=== PATIENT | male | born 1940 | race Caucasian/White ===

== ENCOUNTER → 2020-11-22 | Outpatient (REF) | payer MEDICARE, OTHER | LOC: M LAB REF 13:36 | PROVIDERS: ATTEND Internal Medicine Nephrology | DX: E83.42 Hypomagnesemia (principal) ==

== ENCOUNTER 2024-02-24 10:36 | Day surgery (SDC) | payer MEDICARE, OTHER ==
[~2024-02-24] VITALS: Ht 167.6 cm; Wt 72.1 kg
[~2024-02-24 10:36] MED LIST: ACID1CAP5 PO; ALBU2.5V10; ATOR1TAB21 PO; CITA10TA7 PO; ELIQ5TAB PO; ERGO500029 PO; FURO20TA2 PO; LEVO25TA5 PO; MIDAZOLAM INJ 2MG/2ML VIAL As Ordered ONE; OMEG1CAP12 PO; OMEP-173 PO; PHENYLEPHRINE 10% OPHTH SOL 5ML OS PRN; TAMS1CAP17 PO; VENTAER INH; [UNRECOGNIZED DRUG - CODE] PO; fentaNYL 100 MCG/2 ML INJECTION As Ordered ONE
[2024-02-24] MEDS: LIDOCAINE 3.5 % 1ML OPHTH TOPICAL GEL OU ONE (11:05)
[2024-02-24] MEDS: OFLOXACIN 0.3 % (OCUFLOX) OPTH SOL 5ML OS ONE (11:05)
[2024-02-24] MEDS: ATROPINE SULFATE 1% OPHTH SOLN 2ML BTL OS SCH (11:05)
[2024-02-24] MEDS: PHENYLEPHRINE 2.5% OPHTH SOL 2ML OS SCH (11:06)
[2024-02-24] MEDS: TROPICAMIDE 1% OPHTH SOLN 15ML OS SCH (11:06)
[2024-02-24] MEDS ORDERED: LIDOCAINE 2% 100MG/5ML SDV (FOR ANES.) As Ordered ONE (11:57)
[2024-02-24] MEDS: LEVALBUTEROL 1.25MG 0.5ML CONCENTRATE NEB NEB ONE (12:06)
[2024-02-24] MEDS: CEFUROXIME 1MG/0.1ML INTRACAMERAL INJ As Ordered ONE (12:20)
[2024-02-24] MEDS: BSS IRRIG/VANCO(10MG)/TOBRA(5MG)/EPINEPH(1:1000-0.5CC)500ML BAG-ORONLY As Ordered ONE (12:20)
[2024-02-24] MEDS: LIDOCAINE 1% SDV 5ML VIAL As Ordered ONE (12:20)
[2024-02-24 12:35] VITALS: BP 136/73; TEMP 97.4; O2SAT 95
== END 2024-02-24 12:57 | disposition home or self-care (01) ==
LOC: M SDC 10:36
PROVIDERS: ATTEND Ophthalmology
DX: H25.9 Unspecified age-related cataract (principal); H57.03 Miosis; I48.91 Unspecified atrial fibrillation; I25.10 Atherosclerotic heart disease of native coronary artery without angina pectoris; I25.2 Old myocardial infarction; G47.30 Sleep apnea, unspecified; Z95.5 Presence of coronary angioplasty implant and graft; Z79.899 Other long term (current) drug therapy
CPT/HCPCS: 66982; J0697; J2250; J3010; V2632

== ENCOUNTER 2024-04-20 08:01 | Day surgery (SDC) | payer MEDICARE, OTHER ==
[~2024-04-20] VITALS: Ht 167.6 cm; Wt 72.8 kg
[~2024-04-20 08:01] MED LIST changes: -MIDAZOLAM INJ 2MG/2ML VIAL As Ordered ONE; +PHENYLEPHRINE 10% OPHTH SOL 5ML OD PRN; -PHENYLEPHRINE 10% OPHTH SOL 5ML OS PRN; -fentaNYL 100 MCG/2 ML INJECTION As Ordered ONE
[2024-04-20] MEDS: OFLOXACIN 0.3 % (OCUFLOX) OPTH SOL 5ML OD ONE (08:50)
[2024-04-20] MEDS: CYCLOPENTOLATE 1% OPHTH SOLN 2ML BTL OD SCH (08:56)
[2024-04-20] MEDS: TROPICAMIDE 1% OPHTH SOLN 15ML OD SCH (08:56)
[2024-04-20] MEDS: PHENYLEPHRINE 2.5% OPHTH SOL 2ML OD SCH (08:56)
[2024-04-20] MEDS: LIDOCAINE 3.5 % 1ML OPHTH TOPICAL GEL OU ONE (08:56)
[2024-04-20] MEDS ORDERED: fentaNYL 100 MCG/2 ML INJECTION As Ordered ONE (09:59)
[2024-04-20] MEDS ORDERED: MIDAZOLAM INJ 2MG/2ML VIAL As Ordered ONE (09:59)
[2024-04-20] MEDS: LIDOCAINE 1% SDV 5ML VIAL As Ordered ONE (10:21)
[2024-04-20] MEDS: CEFUROXIME 1MG/0.1ML INTRACAMERAL INJ As Ordered ONE (10:23)
[2024-04-20] MEDS: BSS IRRIG/VANCO(10MG)/TOBRA(5MG)/EPINEPH(1:1000-0.5CC)500ML BAG-ORONLY As Ordered ONE (10:24)
[2024-04-20 10:34] VITALS: BP 138/65; TEMP 98.4; O2SAT 96
== END 2024-04-20 11:16 | disposition home or self-care (01) ==
LOC: M SDC 08:01
PROVIDERS: ATTEND Ophthalmology
DX: H25.11 Age-related nuclear cataract, right eye (principal); I48.91 Unspecified atrial fibrillation; I25.118 Atherosclerotic heart disease of native coronary artery with other forms of angina pectoris; J44.9 Chronic obstructive pulmonary disease, unspecified; E03.9 Hypothyroidism, unspecified; I25.2 Old myocardial infarction; E78.00 Pure hypercholesterolemia, unspecified; Z79.01 Long term (current) use of anticoagulants; Z79.890 Hormone replacement therapy; Z79.899 Other long term (current) drug therapy; Z95.5 Presence of coronary angioplasty implant and graft; Z95.1 Presence of aortocoronary bypass graft
CPT/HCPCS: 66984; J0697; J2250; J3010; V2632